=== PATIENT | female | born 1950 | race Caucasian/White ===

== ENCOUNTER 2021-12-11 17:58 | Inpatient (IN) | payer MEDICARE, OTHER ==
[~2021-12-11] VITALS: Ht 157.5 cm; Wt 90.5 kg
[~2021-12-11 17:58] MED LIST: ALLOPURINOL100 MG PO; AMARYL4 MG PO; ARANESP25 MCG/0.4 SC; ASPIRIN CHEWABL81 MG PO; CHLORTHALIDONE25 MG PO; COLESTID 1GM TAB1 GM PO; DRISDOL50000 UNIT PO; GLUCOTROL XL2.5 MG PO; HYDRALAZINE25 MG PO; LASIX20 MG PO; LIPITOR20 M1 PO; LOPRESSOR25 MG PO; NEXIUM40 MG PO; ROCALTROL 0.0.25 MCG PO; TAPAZOLE5 MG PO; ZESTRIL30 MG PO
[2021-12-11 19:28] LABS: INFLUENZA A NAA NEGATIVE (NEGATIVE)
[2021-12-11 19:32] LABS: CORONAVIRUS 2019 SARS-COV-2 POSITIVE (NEGATIVE)
[2021-12-11 20:46] LABS: BASOPHIL 0.9 % (0-2); EOSINOPHIL 1.5 % (0-7); HCT 29.9 % (37.0-47.0); HGB 10.1 g/dl (12.5-16.0); LYMPHOCYTE 40.6 % (15-48); MCH 27.9 pg (25.0-31.0); MCHC 33.8 g/dL (32.0-36.0); MCV 82.6 fL (78.0-100.0); MPV 9.9 fL (6.0-9.5); NEUTROPHIL 36.1 % (41-80); NRBC 0; PLT 181 K/uL (150-400); RBC 3.62 M/uL (4.20-5.40); RDW 14.4 % (11.5-14.0); WBC 3.3 K/uL (4.0-10.5)
[2021-12-11 21:09] LABS: ALBUMIN 2.8 g/dL (3.4-5.0); BILIRUBIN - TOTAL 0.3 mg/dL (0.2-1.0); BUN/CREAT RATIO (CALC) 10.2 RATIO; CREATININE 4.69 mg/dL (0.51-0.95); GLOBULIN (CALCULATION) 3.8 g/dL; POTASSIUM 3.1 mmol/L (3.5-5.1); TOTAL PROTEIN 6.6 g/dL (6.4-8.2)
[2021-12-11 21:15] LABS: BILIRUBIN NEGATIVE (NEGATIVE); BLOOD TRACE-INTACT Ery/uL (NEGATIVE); COLOR YELLOW (YELLOW); GLUCOSE (U) TRACE mg/dL (NORMAL); LEUKOCYTES 1+ Leu/uL (NEGATIVE); NITRITE NEGATIVE (NEGATIVE); PROTEIN 3+ mg/dL (NEGATIVE); UROBILINOGEN 0.2 mg/dL (0.2-1.0)
[2021-12-11 21:16] LABS: CLARITY CLOUDY (CLEAR)
[2021-12-11 21:23] LABS: BACTERIA 3+
[2021-12-12 00:49] LABS: BUN/CREAT RATIO (CALC) 10.7 RATIO; CREATININE 4.31 mg/dL (0.51-0.95)
[2021-12-12 07:02] LABS: BASOPHIL 0.8 % (0-2); EOSINOPHIL 2.1 % (0-7); HCT 25.3 % (37.0-47.0); HGB 8.6 g/dl (12.5-16.0); LYMPHOCYTE 33.7 % (15-48); MCH 28.1 pg (25.0-31.0); MCV 82.7 fL (78.0-100.0); MONOCYTE 12.6 % (0-12); MPV 9.8 fL (6.0-9.5); NEUTROPHIL 50.3 % (41-80); NRBC 0; PLT 156 K/uL (150-400); RBC 3.06 M/uL (4.20-5.40); RDW 14.3 % (11.5-14.0); WBC 3.7 K/uL (4.0-10.5)
[2021-12-12 07:51] LABS: BUN/CREAT RATIO (CALC) 10.4 RATIO; CREATININE 4.44 mg/dL (0.51-0.95); POTASSIUM 3.2 mmol/L (3.5-5.1)
[2021-12-13 06:58] LABS: BASOPHIL 0.6 % (0-2); EOSINOPHIL 2.6 % (0-7); HCT 24.4 % (37.0-47.0); LYMPHOCYTE 39.7 % (15-48); MCH 28.1 pg (25.0-31.0); MCHC 32.8 g/dL (32.0-36.0); MCV 85.6 fL (78.0-100.0); MONOCYTE 11.3 % (0-12); MPV 10.4 fL (6.0-9.5); NEUTROPHIL 45.2 % (41-80); NRBC 0.6; PLT 143 K/uL (150-400); RBC 2.85 M/uL (4.20-5.40); RDW 14.6 % (11.5-14.0); WBC 3.1 K/uL (4.0-10.5)
[2021-12-13 07:20] LABS: BUN/CREAT RATIO (CALC) 10.3 RATIO; CREATININE 4.47 mg/dL (0.51-0.95); POTASSIUM 3.6 mmol/L (3.5-5.1)
[2021-12-14 07:01] LABS: BASOPHIL 0.5 % (0-2); EOSINOPHIL 0.7 % (0-7); HCT 25.2 % (37.0-47.0); HGB 8.3 g/dl (12.5-16.0); LYMPHOCYTE 14.1 % (15-48); MCH 27.9 pg (25.0-31.0); MCHC 32.9 g/dL (32.0-36.0); MCV 84.6 fL (78.0-100.0); MONOCYTE 7.3 % (0-12); MPV 10.4 fL (6.0-9.5); NEUTROPHIL 76.5 % (41-80); NRBC 0; PLT 151 K/uL (150-400); RBC 2.98 M/uL (4.20-5.40); RDW 14.7 % (11.5-14.0); WBC 4.4 K/uL (4.0-10.5)
[2021-12-14 07:18] LABS: BUN/CREAT RATIO (CALC) 10.1 RATIO; CREATININE 4.34 mg/dL (0.51-0.95); POTASSIUM 3.6 mmol/L (3.5-5.1)
[2021-12-15 06:30] LABS: BASOPHIL 0.7 % (0-2); EOSINOPHIL 1.2 % (0-7); HCT 24.2 % (37.0-47.0); HGB 8.1 g/dl (12.5-16.0); LYMPHOCYTE 27.2 % (15-48); MCH 28.2 pg (25.0-31.0); MCHC 33.5 g/dL (32.0-36.0); MCV 84.3 fL (78.0-100.0); MONOCYTE 11.2 % (0-12); MPV 10.2 fL (6.0-9.5); NEUTROPHIL 58.7 % (41-80); NRBC 0; PLT 147 K/uL (150-400); RBC 2.87 M/uL (4.20-5.40); RDW 14.8 % (11.5-14.0)
[2021-12-15 06:57] LABS: BUN/CREAT RATIO (CALC) 9.7 RATIO; CREATININE 4.52 mg/dL (0.51-0.95); POTASSIUM 3.9 mmol/L (3.5-5.1)
[2021-12-16 06:43] LABS: BASOPHIL 1.1 % (0-2); EOSINOPHIL 1.7 % (0-7); HCT 24.7 % (37.0-47.0); LYMPHOCYTE 25.8 % (15-48); MCH 27.8 pg (25.0-31.0); MCHC 32.4 g/dL (32.0-36.0); MCV 85.8 fL (78.0-100.0); MONOCYTE 13.2 % (0-12); MPV 10.8 fL (6.0-9.5); NEUTROPHIL 57.4 % (41-80); NRBC 0; PLT 165 K/uL (150-400); RBC 2.88 M/uL (4.20-5.40); RDW 14.8 % (11.5-14.0); WBC 3.6 K/uL (4.0-10.5)
[2021-12-16 06:59] LABS: BUN/CREAT RATIO (CALC) 10.3 RATIO; CREATININE 4.65 mg/dL (0.51-0.95); POTASSIUM 4.2 mmol/L (3.5-5.1)
[2021-12-16] MEDS ORDERED: CLONIDINE HCL0.1 MG PO (17:57)
[2021-12-16] MEDS ORDERED: ONDANSETRON ODT4 MG PO (17:57)
[2021-12-16] MEDS ORDERED: NORVASC5 MG PO (17:57)
== END 2021-12-16 18:15 | disposition home or self-care (01) | DRG 177 ==
LOC: FER 17:58 → FMS 12-12 01:46
PROVIDERS: Emergency Medicine Emergency Medical Services; Family Medicine; Internal Medicine; Nurse Practitioner; ADMIT Internal Medicine
PROC: 8E0ZXY6 Isolation (ICD-10-PCS; principal; 2021-12-12)
DX: U07.1 COVID-19 (principal); J12.82 Pneumonia due to coronavirus disease 2019; N17.9 Acute kidney failure, unspecified; I13.0 Hypertensive heart and chronic kidney disease with heart failure and stage 1 through stage 4 chronic kidney disease, or unspecified chronic kidney disease; N18.4 Chronic kidney disease, stage 4 (severe); N30.00 Acute cystitis without hematuria; I50.32 Chronic diastolic (congestive) heart failure; D63.1 Anemia in chronic kidney disease; E89.0 Postprocedural hypothyroidism; E05.90 Thyrotoxicosis, unspecified without thyrotoxic crisis or storm; E11.22 Type 2 diabetes mellitus with diabetic chronic kidney disease; M10.9 Gout, unspecified; E87.6 Hypokalemia; E86.0 Dehydration; E66.9 Obesity, unspecified; D69.6 Thrombocytopenia, unspecified; Z88.0 Allergy status to penicillin; Z85.828 Personal history of other malignant neoplasm of skin; Z90.710 Acquired absence of both cervix and uterus; Z85.850 Personal history of malignant neoplasm of thyroid; Z85.41 Personal history of malignant neoplasm of cervix uteri; Z90.49 Acquired absence of other specified parts of digestive tract; Z79.84 Long term (current) use of oral hypoglycemic drugs; Z79.899 Other long term (current) drug therapy; Z68.36 Body mass index [BMI] 36.0-36.9, adult
CPT/HCPCS: 36415; 71045; 71250; 80048; 80053; 81001; 83880; 84439; 84443; 85025; 87449; 93005; G0378; J0696; J1644; J2405; J3480; J7120; U0002

== ENCOUNTER 2022-02-11 20:00 | Emergency (ER) | payer MEDICARE, OTHER ==
[~2022-02-11 20:00] MED LIST changes: +CLONIDINE HCL0.1 MG PO; +NORVASC5 MG PO; +ONDANSETRON ODT4 MG PO
[2022-02-11 20:32] LABS: BASOPHIL 1.2 % (0-2); EOSINOPHIL 4.9 % (0-7); HCT 26.8 % (37.0-47.0); HGB 8.8 g/dl (12.5-16.0); LYMPHOCYTE 15.2 % (15-48); MCH 28.4 pg (25.0-31.0); MCHC 32.8 g/dL (32.0-36.0); MCV 86.5 fL (78.0-100.0); MONOCYTE 9.1 % (0-12); MPV 10.9 fL (6.0-9.5); NEUTROPHIL 69.2 % (41-80); NRBC 0; PLT 249 K/uL (150-400); RDW 16.4 % (11.5-14.0); WBC 7.8 K/uL (4.0-10.5)
[2022-02-11 21:07] LABS: ALBUMIN 2.7 g/dL (3.4-5.0); BILIRUBIN - TOTAL 0.4 mg/dL (0.2-1.0); CREATININE 5.39 mg/dL (0.51-0.95); FT4 (FREE T4) 1.2 ng/dL (0.76-1.46); GLOBULIN (CALCULATION) 3.9 g/dL; MAGNESIUM 1.9 mg/dL (1.8-2.4); POTASSIUM 4.2 mmol/L (3.5-5.1); TOTAL PROTEIN 6.6 g/dL (6.4-8.2)
== END 2022-02-12 00:15 | disposition other institution (70) ==
LOC: FER 20:00
PROVIDERS: Internal Medicine
DX: I44.1 Atrioventricular block, second degree (principal); R00.1 Bradycardia, unspecified; E11.22 Type 2 diabetes mellitus with diabetic chronic kidney disease; I12.9 Hypertensive chronic kidney disease with stage 1 through stage 4 chronic kidney disease, or unspecified chronic kidney disease; N18.4 Chronic kidney disease, stage 4 (severe); Z79.84 Long term (current) use of oral hypoglycemic drugs; Z88.0 Allergy status to penicillin; Z20.822 Contact with and (suspected) exposure to COVID-19
CPT/HCPCS: 36415; 71045; 80053; 83735; 83880; 84439; 84443; 84484; 85025; 93005; J0461; U0002

== ENCOUNTER 2022-03-21 14:26 | Day surgery (SDCO) | payer MEDICARE, OTHER ==
[~2022-03-21] VITALS: Ht 157.5 cm; Wt 88.2 kg
[2022-03-21 16:12] LABS: BASOPHIL 1.1 % (0-2); EOSINOPHIL 3.1 % (0-7); HCT 27.8 % (37.0-47.0); LYMPHOCYTE 17.9 % (15-48); MCH 27.4 pg (25.0-31.0); MCHC 32.4 g/dL (32.0-36.0); MCV 84.5 fL (78.0-100.0); MONOCYTE 7.8 % (0-12); MPV 11.5 fL (6.0-9.5); NEUTROPHIL 69.5 % (41-80); NRBC 0; RBC 3.29 M/uL (4.20-5.40); RDW 15.2 % (11.5-14.0); WBC 9.4 K/uL (4.0-10.5)
[2022-03-21 16:26] LABS: ALBUMIN 2.7 g/dL (3.4-5.0); BILIRUBIN - TOTAL 0.5 mg/dL (0.2-1.0); BUN/CREAT RATIO (CALC) 14.1 RATIO; CREATININE 4.04 mg/dL (0.51-0.95); GLOBULIN (CALCULATION) 4.6 g/dL; POTASSIUM 3.9 mmol/L (3.5-5.1); TOTAL PROTEIN 7.3 g/dL (6.4-8.2)
[2022-03-21 16:37] LABS: PLT 179 K/uL (150-400)
[2022-03-21 16:55] LABS: CORONAVIRUS 2019 SARS-COV-2 NEGATIVE (NEGATIVE); INFLUENZA A NAA NEGATIVE (NEGATIVE)
[2022-03-21] MEDS ORDERED: CLONIDINE HCL0.1 MG PO (22:22)
[2022-03-21] MEDS ORDERED: NEXIUM40 MG PO (22:26)
[2022-03-22 05:50] LABS: BASOPHIL 1.1 % (0-2); EOSINOPHIL 3.6 % (0-7); HCT 24.1 % (37.0-47.0); LYMPHOCYTE 21.7 % (15-48); MCH 28.2 pg (25.0-31.0); MCHC 33.2 g/dL (32.0-36.0); MCV 84.9 fL (78.0-100.0); MONOCYTE 9.9 % (0-12); MPV 10.5 fL (6.0-9.5); NEUTROPHIL 63.3 % (41-80); NRBC 0; PLT 199 K/uL (150-400); RBC 2.84 M/uL (4.20-5.40); RDW 15.2 % (11.5-14.0)
[2022-03-22 06:07] LABS: IRON % SATURATION 24.7 %SAT (20-50)
[2022-03-22 06:20] LABS: BUN/CREAT RATIO (CALC) 13.9 RATIO; CREATININE 4.1 mg/dL (0.51-0.95); MAGNESIUM 1.6 mg/dL (1.8-2.4); POTASSIUM 3.7 mmol/L (3.5-5.1)
[2022-03-23 06:01] LABS: EOSINOPHIL 4.4 % (0-7); HCT 23.5 % (37.0-47.0); HGB 7.7 g/dl (12.5-16.0); LYMPHOCYTE 20.6 % (15-48); MCH 28.1 pg (25.0-31.0); MCHC 32.8 g/dL (32.0-36.0); MCV 85.8 fL (78.0-100.0); MONOCYTE 11.7 % (0-12); MPV 10.4 fL (6.0-9.5); NEUTROPHIL 61.6 % (41-80); NRBC 0; PLT 190 K/uL (150-400); RBC 2.74 M/uL (4.20-5.40); RDW 15.5 % (11.5-14.0); WBC 6.8 K/uL (4.0-10.5)
[2022-03-23 06:31] LABS: BUN/CREAT RATIO (CALC) 13.6 RATIO; CREATININE 4.57 mg/dL (0.51-0.95); POTASSIUM 3.8 mmol/L (3.5-5.1)
[2022-03-24 07:18] LABS: BASOPHIL 0.9 % (0-2); EOSINOPHIL 4.9 % (0-7); HCT 25.6 % (37.0-47.0); HGB 8.3 g/dl (12.5-16.0); LYMPHOCYTE 19.9 % (15-48); MCH 27.9 pg (25.0-31.0); MCHC 32.4 g/dL (32.0-36.0); MCV 86.2 fL (78.0-100.0); MONOCYTE 10.5 % (0-12); MPV 10.7 fL (6.0-9.5); NRBC 0; PLT 224 K/uL (150-400); RBC 2.97 M/uL (4.20-5.40); RDW 15.9 % (11.5-14.0); WBC 7.7 K/uL (4.0-10.5)
[2022-03-24 07:32] LABS: BUN/CREAT RATIO (CALC) 13.5 RATIO; CREATININE 4.89 mg/dL (0.51-0.95)
== END 2022-03-24 16:00 | disposition home or self-care (01) ==
LOC: FER 14:26 → FMS 17:10
PROVIDERS: Emergency Medicine; Nurse Practitioner; ADMIT Internal Medicine
DX: E11.22 Type 2 diabetes mellitus with diabetic chronic kidney disease (principal); I13.2 Hypertensive heart and chronic kidney disease with heart failure and with stage 5 chronic kidney disease, or end stage renal disease; N18.5 Chronic kidney disease, stage 5; I50.33 Acute on chronic diastolic (congestive) heart failure; D50.9 Iron deficiency anemia, unspecified; F17.200 Nicotine dependence, unspecified, uncomplicated; K21.9 Gastro-esophageal reflux disease without esophagitis; Z95.0 Presence of cardiac pacemaker; Z20.822 Contact with and (suspected) exposure to COVID-19; Z85.41 Personal history of malignant neoplasm of cervix uteri; Z85.828 Personal history of other malignant neoplasm of skin; Z85.850 Personal history of malignant neoplasm of thyroid; Z88.0 Allergy status to penicillin
CPT/HCPCS: 36415; 36600; 71045; 80048; 80053; 82728; 82803; 83036; 83540; 83550; 83735; 83880; 84484; 85025; 93005; 94664; G0378; J1650; J2916; J3490; U0002